=== PATIENT | female | born 1995 | race Caucasian/White ===

== ENCOUNTER 2021-07-24 21:50 | Emergency (ER) | payer SELFPAY ==
[~2021-07-24] VITALS: Ht 170.2 cm; Wt 81.8 kg
[~2021-07-24 21:50] MED LIST: CLOT15CR35 TP; CLOT15CR73 TP; NITR100C6 PO; PHEN-786 PO; PREN-57 PO
[2021-07-24 22:02] VITALS: BP 132/74
== END 2021-07-24 23:03 ==
LOC: ER 21:51
DX: S60.012A Contusion of left thumb without damage to nail, initial encounter (principal); X58.XXXA Exposure to other specified factors, initial encounter; Y93.89 Activity, other specified; Y92.89 Other specified places as the place of occurrence of the external cause; Y99.8 Other external cause status
CPT/HCPCS: 73110; 73130; 99284

== ENCOUNTER 2021-09-08 00:12 | Emergency (ER) | payer SELFPAY ==
[~2021-09-08] VITALS: Ht 170.2 cm; Wt 81.8 kg
[2021-09-08 00:18] VITALS: BP 115/72
== END 2021-09-08 01:48 | disposition left against medical advice (07) ==
LOC: ER 00:12
DX: S61.412A Laceration without foreign body of left hand, initial encounter (principal); Z53.21 Procedure and treatment not carried out due to patient leaving prior to being seen by health care provider; X58.XXXA Exposure to other specified factors, initial encounter; Y93.89 Activity, other specified; Y92.89 Other specified places as the place of occurrence of the external cause; Y99.8 Other external cause status

== ENCOUNTER 2023-11-07 16:08 | Emergency (ER) | payer MEDICAID ==
[~2023-11-07] VITALS: Ht 170.2 cm; Wt 79.5 kg
[2023-11-07 16:48] LABS: BASOPHILS % (AUTO) 0.1 % (0-1); EOSINOPHILS # (AUTO) 0.1 X10'3 (0-0.9); EOSINOPHILS % (AUTO) 0.2 % (0-6); HEMATOCRIT 40.8 % (35.0-45.0); HEMOGLOBIN 13.6 g/dl (12.0-16.0); LYMPHOCYTES # (AUTO) 1.4 X10'3 (1.1-4.8); LYMPHOCYTES % (AUTO) 6.3 % (21-51); MEAN CORPUSCULAR HEMOGLOBIN 29.5 PG (27.0-31.0); MEAN CORPUSCULAR HGB CONC 33.4 g/dL (33.0-36.5); MEAN CORPUSCULAR VOLUME 88.3 FL (78-98); MEAN PLATELET VOLUME 6.9 FL (7.4-10.4); MONOCYTES # (AUTO) 1.3 X10'3 (0-0.9); MONOCYTES % (AUTO) 5.7 % (2-12); NEUTROPHILS % (AUTO) 87.7 % (42-75); PLATELET COUNT 397 X10'3 (140-440); RED BLOOD COUNT 4.62 X10'6 (4.20-5.60); WHITE BLOOD COUNT 22.8 X10'3 (4.5-11.0)
[2023-11-07 17:06] LABS: ALANINE AMINOTRANSFERASE 24 U/L (12-78); ALBUMIN 2.9 G/DL (3.4-5.0); ALBUMIN/GLOBULIN RATIO 0.6 (1.1-1.5); ALKALINE PHOSPHATASE 120 IU/L (46-116); ANION GAP 8 (8-16); ASPARTATE AMINO TRANSFERASE 9 U/L (10-37); BILIRUBIN,TOTAL 0.8 MG/DL (0.1-1.0); BLOOD UREA NITROGEN 6 MG/DL (7-18); BUN/CREATININE RATIO 7.2 (10.0-20.0); CALCIUM 9.2 MG/DL (8.5-10.1); CHLORIDE 99 MMOL/L (99-107); CREATININE 0.83 MG/DL (0.40-0.90); GLUCOSE 100 MG/DL (70-104); LIPASE 15 U/L (16-77); POTASSIUM 3.3 MMOL/L (3.5-5.1); SODIUM 134 MMOL/L (135-145); TOTAL CARBON DIOXIDE 27.1 MMOL/L (24-32); TOTAL PROTEIN 7.5 G/DL (6.4-8.2); eCRCL 98 ML/MIN; eGFR 82 ML/MIN
[2023-11-07] MEDS: ketorolac trometh. 30mg/ml inj. IM ONE (17:36)
[2023-11-07 18:07] LABS: BILIRUBIN,URINE NEGATIVE (Neg); CLARITY,URINE SLIGHTLY CLOUDY (Clear); COLOR,URINE YELLOW (Yellow); GLUCOSE, URINE NEGATIVE (Neg); KETONES,URINE NEGATIVE (Neg); LEUKOCYTE ESTERASE ,URINE SMALL (Neg); NITRITES, URINE NEGATIVE (Neg); OCCULT BLOOD,URINE NEGATIVE (Neg); PH,URINE 6.5 (4.8-8.0); PROTEIN,URINE NEGATIVE (Neg)
[2023-11-07 18:11] LABS: URINE HCG NEGATIVE (NEG)
[2023-11-07 18:13] LABS: UA COLLECTION TYPE CLN CATCH MIDSTREAM
[2023-11-07 18:14] LABS: HYALINE CASTS 0-3 /LPF (NEGATIVE); SQUAMOUS EPITHELIAL CELL,UR MANY /LPF (FEW)
[2023-11-07 18:16] LABS: RBC,URINE 0-2 /HPF (0-2)
[2023-11-07 18:17] LABS: BACTERIA,URINE FEW /HPF (Neg)
[2023-11-07] MEDS ORDERED: iohexol 300mg/ml 100ml inj. ONE (18:37)
[2023-11-07] MEDS: CefTRIAXone 2gm/D5W 50ml BAG 50 ML IV ONE (21:50)
[2023-11-07] MEDS: DOXYCYCLINE 100MG CAPSULE PO STA (22:27)
[2023-11-07] MEDS: ondansetron/PF 4mg/2ml inj IV ONE (22:27)
[2023-11-07] MEDS: ketorolac tromethamine 15mg/ml inj. IV ONE (23:32)
[2023-11-08] MEDS: metroNIDAZOLE-Flagyl 500mg/NS 100 ML IV SCH (03:17)
[2023-11-08] MEDS: ketorolac tromethamine 15mg/ml inj. IV ONE (06:42)
[2023-11-08 06:43] VITALS: BP 115/66; PULSE 106; RESP 16; TEMP 98.5; O2SAT 99
[2023-11-09 20:23] LABS: CHLAMYDIA TRACHOMATIS, NAA Negative (Negative)
== END 2023-11-08 06:47 | disposition short-term general hospital (02) ==
LOC: ER 16:08
DX: R10.32 Left lower quadrant pain (principal); Z20.822 Contact with and (suspected) exposure to COVID-19; N83.202 Unspecified ovarian cyst, left side
CPT/HCPCS: 36415; 74177; 76830; 76856; 80053; 81001; 81025; 83605; 83690; 84145; 85025; 86592; 87040; 87210; 87491; 87591; 87811; 93976; 96365; 96367; 96372; 96375; 99285; J0696; J1885; J2405; J3490; Q9967